=== PATIENT | female | born 1965 | race Hispanic/Latino ===

== ENCOUNTER 2017-05-25 20:29 | Emergency (ER) | payer OTHER ==
[~2017-05-25] VITALS: Ht 157.5 cm; Wt 53.2 kg
--- NOTE | 2017-05-25 20:40 | ED.REPORT ---
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 The patient was Heb B and C negative. A panel was drawn on the patient and the needle stick protocol was initiated. Nursing Notes Stated Complaint: NEEDLE STICK Nursing Notes Reviewed: Yes Allergies: Coded Allergies: metoclopramide (Verified Allergy, Mild, 05/25/17) prochlorperazine (Verified Allergy, Mild, 05/25/17) trimethobenzamide (Verified Allergy, Mild, 05/25/17) latex (Verified Allergy, Unknown, 05/25/17) General Time Seen by MD: 20:40 Chief Complaint Other (Needle stick ) Hx Obtained From: Patient Arrived By: Walk-in Sudden in Onset?: Yes Onset Occurred: Just prior to arrival Past Medical History Past Medical History None reported Past Surgical History None reported Smoking History Unknown if Ever Smoker Ambulatory Status Independent Review of Systems +needle stick Full Review of Systems Constitutional: Denies: Chills, Fever GI: Denies: Nausea, Vomiting Complete sys rev & neg: except as marked. Physical Exam Vital Signs Vital Signs Date Time Temp Pulse Resp B/P Pulse Ox O2 Delivery O2 Flow Rate FiO2 05/25/17 20:41 36.8 109 18 157/100 95 Room Air Initial VS: Reviewed General/Constitutional: Well-developed, Well-nourished Head / Eyes: Atraumatic, Normocephalic Neck: Full range of motion Respiratory: No respiratory distress Cardiovascular: Intact distal pulses Skin: Warm, Dry Neurologic: Alert, Oriented, Nonfocal Psychiatric: Mood/affect normal, Behavior normal, Normal thought content General/Constitutional: Awake, Alert, No acute distress Band aid over L thumb Interpretation & Diagnostics Lab Results Interpretation Test 05/25/17 20:58 Re-Eval/Medical Decision Med Decision/Clinical Course 51-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 Exposure panel drawn. Source patient exposure panel reportedly drawn. Patient will follow-up with employee health. Re-Evaluation/Progress Note: Discussed plan to return to work. Patient understands and agrees with plan. All questions addressed at this time. Counseled Regarding: Diagnosis, Need for follow-up, When/why to return to ED Discharge & Departure Primary Impression: Needle stick injury Encounter type: initial encounter Qualified Code: W27.3XXA - Contact with needle (sewing), initial encounter Disposition: Home Discharge Condition All VS Reviewed: Yes Condition: Stable Patient Instructions: Needle Stick Injuries (ED) Referrals: Dee Rizo MD (PCP) Scribe Attestation Portions of this note were transcribed by Nguyen Dee. I, Dr. Remy personally performed the history, physical exam and medical decision-making; I reviewed and confirmed the accuracy of the information in the transcribed note. Signed by: Nguyen Dee 05/25/17, 6552 copies to: Dee Rizo MD, Ben M MD May 25, 2017 20:40 NGUYEN DEE May 25, 2017 22:27
[2017-05-25 20:41] VITALS: BP 157/100; PULSE 109; RESP 18; O2SAT 95
[2017-05-25] MEDS ORDERED: TdaP Vaccine 0.5 mL Inj IM ONE (21:23)
== END 2017-05-25 20:50 | disposition home or self-care (01) ==
LOC: SED 20:29
DX: S61.032A Puncture wound without foreign body of left thumb without damage to nail, initial encounter (principal); W46.0XXA Contact with hypodermic needle, initial encounter; Y93.89 Activity, other specified; Y99.0 Civilian activity done for income or pay; Y92.238 Other place in hospital as the place of occurrence of the external cause; Z23 Encounter for immunization; Z88.8 Allergy status to other drugs, medicaments and biological substances
CPT/HCPCS: 36415; 86706; 87340; 90471; 90715; 99283; G0433